=== PATIENT | male | born 2000 | race Caucasian/White ===

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

== ENCOUNTER 2025-04-29 19:05 | Emergency (ER) | payer OTHER ==
[~2025-04-29] VITALS: Ht 154.9 cm; Wt 74.8 kg
[~2025-04-29 19:05] MED LIST changes: +CONCERTA36 MG PO; +RITALIN10 MG PO
[2025-04-29] MEDS ORDERED: PREDNISONE20 M1 PO (19:36)
== END 2025-04-29 20:02 | disposition home or self-care (01) ==
LOC: ED 19:05
DX: L23.7 Allergic contact dermatitis due to plants, except food (principal); F90.9 Attention-deficit hyperactivity disorder, unspecified type; Z88.8 Allergy status to other drugs, medicaments and biological substances